=== PATIENT | male | born 1980 | race Caucasian/White ===

== ENCOUNTER → 2025-01-29 | Outpatient (CLI) | payer SELFPAY ==
--- NOTE | 2025-01-29 09:49 | CT ---
EXAMINATION TYPE: CT abdomen wo con DATE OF EXAM: 01/29/2025 9:02 AM COMPARISON: None. CLINICAL INDICATION: Male, 44 years old with history of K46.9 UNSPECIFIED ABDOMINAL HERNIA WITHOUT OB STRUC; Abdominal pain, pt states hernia TECHNIQUE: Axial CT abdomen wo con;Sagittal and coronal reconstructions performed. Oral contrast used: with Oral Contrast CT DLP: 317 mGycm, Automated exposure control for dose reduction was used. FINDINGS: LOWER CHEST: Unremarkable ABDOMEN LIVER: Unremarkable GALLBLADDER AND BILE DUCTS: Unremarkable. PANCREAS: Unremarkable. SPLEEN: Tiny hilar splenule. ADRENAL GLANDS: Unremarkable. KIDNEYS AND URETERS: There is mild fullness of the bilateral ureters which may be a transient finding . No evidence of hydronephrosis or renal calculus. The ureters are unremarkable. PELVIS Not imaged. ADDITIONAL ABDOMEN STOMACH AND BOWEL: Tiny hiatal hernia noted. No evidence of bowel obstruction. Moderate stool burden. No pericolonic inflammatory change. PERITONEUM/RETROPERITONEUM: No evidence of pneumoperitoneum or free fluid. VASCULATURE: No evidence of aortic aneurysm. MUSCULOSKELETAL: Mild degenerative disc disease lower thoracic spine. LYMPH NODES: No gross evidence for lymphadenopathy. SOFT TISSUE/ABDOMINAL WALL: There is a small 2.0 cm wide omental fat-containing epigastric midline ab dominal wall hernia extending through a pinhole 8mm abdominal wall defect. There is some stranding wi thin the hernia sac and just deep to the neck of the hernia. Small fatty umbilical hernia. IMPRESSION: 1. Small 2.0 cm epigastric ventral abdominal wall hernia containing omental fat and extending throug h a pinhole 8mm abdominal wall defect. Given some fat stranding in this region, correlate for focal p ain and for hernia incarceration. 2. Small umbilical hernia partially visualized. Pelvis not imaged. 3. Moderate stool burden. 4. Mild fullness of the bilateral ureters probably a transient finding. Consider short interval follo w-up renal ultrasound to exclude any early developing hydronephrosis and to ensure normal appearance of the ureteral jets within the bladder. [facility], , 01/29/2025 9:46 AM
== END | disposition home or self-care (01) ==
LOC: RADCTMAIN 07:48
DX: K43.9 Ventral hernia without obstruction or gangrene (principal); K42.9 Umbilical hernia without obstruction or gangrene
CPT/HCPCS: 74150

== ENCOUNTER → 2025-01-30 | Outpatient (CLI) | payer SELFPAY ==
--- NOTE | 2025-01-31 07:58 | US ---
EXAMINATION TYPE: US scrotum with doppler. DATE OF EXAM: 01/30/2025 COMPARISON: NONE CLINICAL INDICATION: Male, 44 years old with history of N50.811 PAIN IN TESTICLE; Pt states right scr otum enlarged x "for years" TECHNIQUE: Grayscale, color Doppler and spectral Doppler imaging of the scrotum. FINDINGS: EXAM MEASUREMENTS: TESTICLES: Right Testicle: 5.0 x 3.1 x 3.2 cm Left Testicle: 4.3 x 2.1 x 3.7 cm EPIDIDYMIS HEAD: Right Epididymis: 1.5 cm Left Epididymis: 1.4 cm Doppler performed to assess for testicular vascularity; good bilateral color flow and spectral wavefo steven are seen. Presence of hydroceles: Yes, right side= 8.6 x 4.1 x 5.9 cm Presence of varicoceles: No Small, 3mm right epi head cyst IMPRESSION: Symmetric blood flow is seen bilaterally. Asymmetric Small to moderate-sized right scrota l fluid collection or hydrocele is noted. [facility], , 01/31/2025 7:56 AM
== END | disposition home or self-care (01) ==
LOC: RADUSWWP 14:48
PROVIDERS: ATTEND Family Medicine
DX: N43.3 Hydrocele, unspecified (principal); N50.89 Other specified disorders of the male genital organs; K46.9 Unspecified abdominal hernia without obstruction or gangrene
CPT/HCPCS: 76870; 93975